=== PATIENT | male | born 1985 | race Two or more races ===

== ENCOUNTER → 2017-04-27 | Emergency (ER) | payer OTHER ==
[~2017-04-27] VITALS: Ht 167.6 cm; Wt 81.6 kg
[~2017-04-27] MED LIST: AIRBORNE EFFER1 EACH PO; KETO10TA2 PO; OSEL75CA PO; TESSALON PERLE100 MG PO
== END | disposition home or self-care (01) ==
LOC: ER 22:53
DX: J11.1 Influenza due to unidentified influenza virus with other respiratory manifestations (principal); E86.0 Dehydration

== ENCOUNTER → 2017-05-04 | Outpatient (CLI) | payer OTHER ==
[~2017-05-04] VITALS: Ht 152.4 cm; Wt 94.3 kg
== END | disposition home or self-care (01) ==
LOC: PPHC 17:53
DX: Z02.79 Encounter for issue of other medical certificate (principal)